=== PATIENT | male | born 1995 | race African-American/Black ===

== ENCOUNTER 2020-06-22 01:01 | Outpatient (CLI) | payer OTHER | END 2020-06-22 01:02 | disposition home or self-care (01) | LOC: LAB 01:01 | PROVIDERS: ATTEND Pathology Blood Banking & Transfusion Medicine | DX: Z53.9 Procedure and treatment not carried out, unspecified reason (principal) | CPT/HCPCS: 36415 ==

== ENCOUNTER 2024-04-06 09:27 | Emergency (ER) | payer MEDICAID ==
[2024-04-06 09:50] VITALS: BP 124/71; O2SAT 100
--- NOTE | 2024-04-06 10:18 | ED Physician Documentation ---
PD HPI WOUND RECHECK - Stated complaint Stated Complaint: STITCH REMOVAL - Chief complaint Chief Complaint: General - Histroy obtained from History obtained from: Patient - History of Present Illness Location: Face (forehead) Associated symptoms: No: Redness, Swelling, Drainage Recently seen: Emergency Dept (seen 7 days ago wth dorehead lac sutured with 3 sutures. Pt states healing well withu problems. No ARELLANO, confusion, off balance.) PD PAST MEDICAL HISTORY - Past Surgical History Past Surgical History: No - Present Medications Home Medications: Ambulatory Orders Medication Instructions Recorded Confirmed Doxycycline Hyclate 100 mg PO BID 7 Days #14 cap 03/30/24 Mupirocin 2% Oint [Bactroban 2% 1 applic TOP TID #15 gm 03/30/24 Oint] - Allergies Allergies/Adverse Reactions: Allergies Allergy/AdvReac Type Severity Reaction Status Date / Time No Known Drug Allergies Allergy Verified 04/06/24 09:38 - Social History Does the pt smoke?: No Smoking Status: Never smoker Does the pt drink ETOH?: Yes Does the pt have substance abuse?: No PD ED PE NORMAL - Vitals Vital signs reviewed: Yes - General General: Alert and oriented X 3, No acute distress, Well developed/nourished - HEENT HEENT: Other (forehead with healing laceration and good approximation of edges. ) - Derm Derm: Normal color, Warm and dry Results - Vitals Vitals: Vital Signs - 24 hr 04/06/24 09:36 Temperature 36.6 C Heart Rate 61 Respiratory 16 Rate Blood Pressure 124/71 O2 Saturation 100 Oxygen O2 Source Room air PD Medical Decision Making - ED course Complexity details: reviewed old records (prior visit 7 days ago), considered differential (healing well and sutures in a week. Appear ready for rremoval. I did removeal without problems. ), d/w patient Departure - Departure Disposition: 01 Home, Self Care Clinical Impression: Visit for suture removal Condition: Stable Record reviewed to determine appropriate education?: Yes Comments: The wound appears well-healing. We did remove the sutures. Continue with some ointment once or twice daily to the area until fully healed. Return if problems. Forms: PCP List Discharge Date/Time: 04/06/24 10:27
== END 2024-04-06 10:27 | disposition home or self-care (01) ==
LOC: ED 09:27
DX: S01.81XD Laceration without foreign body of other part of head, subsequent encounter (principal); X58.XXXD Exposure to other specified factors, subsequent encounter
CPT/HCPCS: 99281